=== PATIENT | female | born 1970 | race Caucasian/White ===

== ENCOUNTER 2016-06-14 10:04 | Emergency (ER) | payer BC, OTHER ==
[~2016-06-14] VITALS: Ht 162.6 cm; Wt 74.9 kg
[2016-06-14 10:50] LABS: EOSINOPHIL COUNT 0.2 K/uL (0-0.3); HEMATOCRIT 38.1 % (36.0-46.0); IMMATURE GRANULOCYTE (%) 0.2 % (0.0-0.7); INSTRUMENT ABS NEUTROPHIL CT 2.5 K/uL; LYMPHOCYTE COUNT 1.3 K/uL (1.0-2.8); MCH 28.6 PG (29.0-34.0); MCHC 33.6 G/DL (30.0-36.0); MEAN PLAT.VOLUME 9.1 uM^3 (9.5-12.4); MONOCYTE COUNT 0.2 K/uL (0-0.8); NEUTROPHIL (%) 59.7 % (45-76); NEUTROPHIL COUNT 2.5 K/uL (1.8-6.4); PLATELET COUNT 190 K/uL (156-360); RBC DIS.WIDTH-CV 12.4 % (11.8-14.6); RBC DIS.WIDTH-SD 38.2 % (39-53); RED BLOOD COUNT 4.48 M/uL (3.80-5.20); WHITE BLOOD COUNT 4.2 K/uL (4.1-10.2)
[2016-06-14 10:59] LABS: CHLORIDE 107 mEq/L (99-109); POTASSIUM 4.2 mEq/L (3.7-5.4); SODIUM 135 mEq/L (136-147)
[2016-06-14 11:00] LABS: GLUCOSE 95 mg/dL (70-99)
[2016-06-14 11:02] LABS: ANION GAP 7 MEQ/L (2-14)
[2016-06-14 11:04] LABS: GFR ESTIMATE (CALCULATED) > 59 mL/min/
[2016-06-14 11:05] LABS: UREA NITROGEN (BUN) 14 mg/dL (9-23)
[2016-06-14] MEDS ORDERED: ELAVIL10 MG PO (13:05)
[2016-06-14 14:52] VITALS: BP 146/132
== END 2016-06-14 14:52 | disposition home or self-care (01) ==
LOC: EME 10:04
PROVIDERS: Emergency Medicine
DX: R51 Headache (principal); G40.909 Epilepsy, unspecified, not intractable, without status epilepticus; Z88.1 Allergy status to other antibiotic agents; Z88.2 Allergy status to sulfonamides
CPT/HCPCS: 70450; 80048; 85025; 99281; 99284; J2270; J2765; J7030